=== PATIENT | female | born 1935 | race Caucasian/White ===

== ENCOUNTER 2019-01-03 03:31 | Emergency (ER) | payer MEDICARE ==
[~2019-01-03] VITALS: Ht 157.5 cm; Wt 54.4 kg
--- OUTSIDE RECORDS SUMMARY | 2019-01-03 03:34 | XMS REPORT ---
[facility] Address Unknown Phone Unavailable Care Team Providers Care Teacher [employer] Name Role Phone Unavailable Unavailable Payers Payer Name Policy Type Policy Number Effective Date Expiration Date Problems This patient has no known problems. Allergies, Adverse Reactions, Alerts Allergy Name Allergy Type Status Severity Reaction(s) Onset Date Inactive Date Treating Clinician Comments SHAUN DIAS Active U 2003-02-01 00:00:00 Medications This patient has no known medications. Results Test Description Test Time Test Comments Text Results Atomic Results Result Comments PROTHROMBIN TIME 2019-01-01 14:48:00 PROTHROMBIN TIME PATIENT (test code=PTP) 23.7 seconds 9.0-14.0 INTERNATIONAL NORMAL RATIO (test code=INR) 2.0 0.8-1.2 The therapeutic range for oral anticoagulant therapy formost indications is an international normalized ratio (INR)of between 2.0 and 3.0. The recommended therapeutic INRrange for various clinical situations is listed below: Clinical Situation INR range Pulmonary e mbolism treatment (2.0-3.0)Venous thrombosis treatmentVenous thrombosis prophylaxis (high risk surgery)Prevention of systemic embolism from: Acute myocardial infarction Valvular heart disease Atrial fibrillation Mechanical prosthetic heart valves (2.5-3.5) PROTHROMBIN [id number] 14:58:00* Test Item Value Reference Range Comments PROTHROMBIN TIME PATIENT (test code=PTP) 23.0 seconds 9.0-14.0 INTERNATIONAL NORMAL RATIO (test code=INR) 1.9 0.8-1.2 The therapeutic range for oral anticoagulant therapy formost indications is an international normalized ratio (INR)of between 2.0 and 3.0. The recommended therapeutic INRrange for various clinical situations is listed below: Clinical Situation INR range Pulmonary e mbolism treatment (2.0-3.0)Venous thrombosis treatmentVenous thrombosis prophylaxis (high risk surgery)Prevention of systemic embolism from: Acute myocardial infarction Valvular heart disease Atrial fibrillation Mechanical prosthetic heart valves (2.5-3.5) PROTHROMBIN [id number] 13:26:00* Test Item Value Reference Range Comments PROTHROMBIN TIME PATIENT (test code=PTP) 48.8 seconds 9.0-14.0 INTERNATIONAL NORMAL RATIO (test code=INR) 4.1 0.8-1.2 The therapeutic range for oral anticoagulant therapy formost indications is an international normalized ratio (INR)of between 2.0 and 3.0. The recommended therapeutic INRrange for various clinical situations is listed below: Clinical Situation INR range Pulmonary e mbolism treatment (2.0-3.0)Venous thrombosis treatmentVenous thrombosis prophylaxis (high risk surgery)Prevention of systemic embolism from: Acute myocardial infarction Valvular heart disease Atrial fibrillation Mechanical prosthetic heart valves (2.5-3.5) PROTHROMBIN [id number] 11:47:00* Test Item Value Reference Range Comments PROTHROMBIN TIME PATIENT (test code=PTP) 18.0 seconds 9.0-14.0 INTERNATIONAL NORMAL RATIO (test code=INR) 1.5 0.8-1.2 The therapeutic range for oral anticoagulant therapy formost indications is an international normalized ratio (INR)of between 2.0 and 3.0. The recommended therapeutic INRrange for various clinical situations is listed below: Clinical Situation INR range Pulmonary e mbolism treatment (2.0-3.0)Venous thrombosis treatmentVenous thrombosis prophylaxis (high risk surgery)Prevention of systemic embolism from: Acute myocardial infarction Valvular heart disease Atrial fibrillation Mechanical prosthetic heart valves (2.5-3.5) PROTHROMBIN [id number] 11:24:00* Test Item Value Reference Range Comments PROTHROMBIN TIME PATIENT (test code=PTP) 36.9 seconds 9.0-14.0 INTERNATIONAL NORMAL RATIO (test code=INR) 3.2 0.8-1.2 The therapeutic range for oral anticoagulant therapy formost indications is an international normalized ratio (INR)of between 2.0 and 3.0. The recommended therapeutic INRrange for various clinical situations is listed below: Clinical Situation INR range Pulmonary e mbolism treatment (2.0-3.0)Venous thrombosis treatmentVenous thrombosis prophylaxis (high risk surgery)Prevention of systemic embolism from: Acute myocardial infarction Valvular heart disease Atrial fibrillation Mechanical prosthetic heart valves (2.5-3.5) PROTHROMBIN [id number] 14:10:00* Test Item Value Reference Range Comments PROTHROMBIN TIME PATIENT (test code=PTP) 41.1 seconds 9.0-14.0 INTERNATIONAL NORMAL RATIO (test code=INR) 3.5 0.8-1.2 The therapeutic range for oral anticoagulant therapy formost indications is an international normalized ratio (INR)of between 2.0 and 3.0. The recommended therapeutic INRrange for various clinical situations is listed below: Clinical Situation INR range Pulmonary e mbolism treatment (2.0-3.0)Venous thrombosis treatmentVenous thrombosis prophylaxis (high risk surgery)Prevention of systemic embolism from: Acute myocardial infarction Valvular heart disease Atrial fibrillation Mechanical prosthetic heart valves (2.5-3.5) PROTHROMBIN [id number] 13:11:00* Test Item Value Reference Range Comments PROTHROMBIN TIME PATIENT (test code=PTP) 30.1 seconds 9.0-14.0 INTERNATIONAL NORMAL RATIO (test code=INR) 2.6 0.8-1.2 The therapeutic range for oral anticoagulant therapy formost indications is an international normalized ratio (INR)of between 2.0 and 3.0. The recommended therapeutic INRrange for various clinical situations is listed below: Clinical Situation INR range Pulmonary e mbolism treatment (2.0-3.0)Venous thrombosis treatmentVenous thrombosis prophylaxis (high risk surgery)Prevention of systemic embolism from: Acute myocardial infarction Valvular heart disease Atrial fibrillation Mechanical prosthetic heart valves (2.5-3.5) COMPREHENSIVE METABOLIC [id number] 12:19:00* Test Item Value Reference Range Comments SODIUM (test code=NA) 142 mmol/L 136-145 POTASSIUM (test code=K) 4.1 mmol/L 3.5-5.1 CHLORIDE (test code=CL) 104.0 mmol/L 98-107 CARBON DIOXIDE (test code=CO2) 30.0 mmol/L 21-32 ANION GAP (test code=GAP) 12.1 10-20 GLUCOSE (test code=GLU) 99 mg/dL 74-106 BLOOD UREA NITROGEN (test code=BUN) 13 mg/dL 7-18 GLOMERULAR FILTRATION RATE (test code=GFR) > 60 mL/min >=60 Estimated GFR by using Modified MDRD formula.Chronic kidney disease is defined as either kidney damageor GFR <60 mL/min/1.73 m2 for >3 months. CREATININE (test code=CREAT) 0.70 mg/dL 0.55-1.02 Note change in reference range due to change in reagent. BUN/CREATININE RATIO (test code=BUN/CREA) 17.4 10-20 TOTAL PROTEIN (test code=PROT) 7.6 gram/dL 6.4-8.2 ALBUMIN (test code=ALB) 3.5 g/dL 3.4-5.0 GLOBULIN (test code=GLOB) 4.1 gram/dL 2.7-4.2 ALBUMIN/GLOBULIN RATIO (test code=A/G) 0.9 0.75-1.50 CALCIUM (test code=CA) 9.0 mg/dL 8.5-10.1 BILIRUBIN TOTAL (test code=BILT) 0.40 mg/dL 0.0-1.0 SGOT/AST (test code=AST) 21 IUnit/L 15-37 SGPT/ALT (test code=ALT) 18 IUnit/L 12-78 ALKALINE PHOSPHATASE TOTAL (test code=ALKP) 81 IUnit/L 45-117 Note change in reference range due to change in reagent. LIPID PROFILE (CORONARY RISK)2018-10-06 12:19:00* Test Item Value Reference Range Comments TRIGLYCERIDES (test code=TRIG) 93 mg/dL 20-150 CHOLESTEROL (test code=CHOL) 236 mg/dL 0-200 CHOLESTEROL/HDL RATIO (test code=CHOLHDL) 4.0 RATIO 0-4.9 RISK ASSOCIATED WITH CHOL/HDL RATIOS: Risk Male Female1/2 AVERAGE 3.43 3.27AVERAGE 4.97 4.442X AVERAGE 9.55 7.053X AVERAGE 23.39 11.04 REFERENCE VALUE IS RELATED TO RISK LEVELS ASRECOMMENDED BY THE [facility]. HEART, LUNG, AND BLOOD INST. HDL CHOLESTEROL (test code=HDL) 58 mg/dL 40-60 LIPOPROTEIN LDL (test code=LDL) 162 mg/dL 100-129 RN PERSONNEL, CONTACT PHYSICIAN IMMEDIATELY IF THIS IS A STROKE, AMI OR CAROTID STENOSIS PATIENT WHEN THE LDL >100 (1ST OCCURENCE, THIS ADMISSION) Reference Interval: mg/dL mmol/L Optimal <100 <2.6Near/above optimal 100-129 2.6- 3.3Borderline High 130-159 3.4-4.1High 160-189 4.1-4.9Very High >=190 >=4.9=========This LDL result is a direct measurement.========= THYROID STIMULATING [id number] 12:19:00* Test Item Value Reference Range Comments THYROID STIMULATING HORMONE (test code=TSH) 0.411 uIU/mL 0.36-3.74 TSH REFERENCE RANGES: EUTHYROID: 0.35 - 4.3 mIU/mL HYPO : > 5.5 mIU/mL HYPER : < 0.35 mIU/mL COMPREHENSIVE METABOLIC [id number] 12:01:00* Test Item Value Reference Range Comments SODIUM (test code=NA) 142 mmol/L 136-145 POTASSIUM (test code=K) 4.1 mmol/L 3.5-5.1 CHLORIDE (test code=CL) 104.0 mmol/L 98-107 CARBON DIOXIDE (test code=CO2) mmol/L 21-32 ANION GAP (test code=GAP) 10-20 GLUCOSE (test code=GLU) mg/dL 74-106 BLOOD UREA NITROGEN (test code=BUN) mg/dL 7-18 GLOMERULAR FILTRATION RATE (test code=GFR) mL/min >=60 CREATININE (test code=CREAT) mg/dL 0.55-1.02 BUN/CREATININE RATIO (test code=BUN/CREA) 10-20 TOTAL PROTEIN (test code=PROT) gram/dL 6.4-8.2 ALBUMIN (test code=ALB) g/dL 3.4-5.0 GLOBULIN (test code=GLOB) gram/dL 2.7-4.2 ALBUMIN/GLOBULIN RATIO (test code=A/G) 0.75-1.50 CALCIUM (test code=CA) mg/dL 8.5-10.1 BILIRUBIN TOTAL (test code=BILT) mg/dL 0.0-1.0 SGOT/AST (test code=AST) IUnit/L 15-37 SGPT/ALT (test code=ALT) IUnit/L 12-78 ALKALINE PHOSPHATASE TOTAL (test code=ALKP) IUnit/L 45-117 LIPID PROFILE (CORONARY RISK)2018-10-06 12:01:00* Test Item Value Reference Range Comments TRIGLYCERIDES (test code=TRIG) mg/dL 20-150 CHOLESTEROL (test code=CHOL) mg/dL 0-200 CHOLESTEROL/HDL RATIO (test code=CHOLHDL) RATIO 0-4.9 HDL CHOLESTEROL (test code=HDL) mg/dL 40-60 LIPOPROTEIN LDL (test code=LDL) mg/dL 100-129 THYROID STIMULATING [id number] 12:01:00* Test Item Value Reference Range Comments THYROID STIMULATING HORMONE (test code=TSH) uIU/mL 0.36-3.74 CBC W/AUTO [id number] 11:35:00* Test Item Value Reference Range Comments WHITE BLOOD CELL (test code=WBC) 4.6 K/mm3 4.5-12.5 RED BLOOD CELL (test code=RBC) 4.97 mill/mm3 3.7-5.2 HEMOGLOBIN (test code=HGB) 14.9 gram/dL 11.5-15.5 HEMATOCRIT (test code=HCT) 45.9 % 36.0-46.0 MEAN CELL VOLUME (test code=MCV) 92.4 fL 80-98 MEAN CELL HGB (test code=MCH) 30.0 picogram 27.0-33.0 MEAN CELL HGB CONCETRATION (test code=MCHC) 32.5 gram/dL 33.0-36.0 RED CELL DISTRIBUTION WIDTH (test code=RDW) 14.0 % 11.6-16.2 RED CELL DISTRIBUTION WIDTH SD (test code=RDW-SD) 47.6 fL 37.0-51.0 PLATELET COUNT (test code=PLT) 191 K/mm3 150-450 MEAN PLATELET VOLUME (test code=MPV) 9.6 fL 6.7-11.0 NEUTROPHIL % (test code=NT%) 68.3 % 39.0-69.0 IMMATURE GRANULOCYTE % (test code=IG%) 0.7 % 0.0-5.0 LYMPHOCYTE % (test code=LY%) 17.6 % 25.0-55.0 MONOCYTE % (test code=MO%) 10.2 % 0.0-10.0 EOSINOPHIL % (test code=EO%) 2.8 % 0.0-5.0 BASOPHIL % (test code=BA%) 0.4 % 0.0-1.0 NUCLEATED RBC % (test code=NRBC%) 0.0 % 0-0 NEUTROPHIL # (test code=NT#) 3.15 K/mm3 1.8-7.7 IMMATURE GRANULOCYTE # (test code=IG#) 0.03 x10 3/uL 0-0.03 LYMPHOCYTE # (test code=LY#) 0.81 K/mm3 1.0-5.0 MONOCYTE # (test code=MO#) 0.47 K/mm3 0-0.8 EOSINOPHIL # (test code=EO#) 0.13 K/mm3 0.0-0.5 BASOPHIL # (test code=BA#) 0.02 K/mm3 0.0-0.2 NUCLEATED RBC # (test code=NRBC#) 0.00 K/mm3 0.0-0.1 MANUAL DIFF REQUIRED (test code=MDIFF) NO CBC W/AUTO [id number] 11:30:00* Test Item Value Reference Range Comments WHITE BLOOD CELL (test code=WBC) K/mm3 4.5-12.5 RED BLOOD CELL (test code=RBC) mill/mm3 3.7-5.2 HEMOGLOBIN (test code=HGB) 14.9 gram/dL 11.5-15.5 HEMATOCRIT (test code=HCT) 45.9 % 36.0-46.0 MEAN CELL VOLUME (test code=MCV) fL 80-98 MEAN CELL HGB (test code=MCH) picogram 27.0-33.0 MEAN CELL HGB CONCETRATION (test code=MCHC) gram/dL 33.0-36.0 RED CELL DISTRIBUTION WIDTH (test code=RDW) % 11.6-16.2 RED CELL DISTRIBUTION WIDTH SD (test code=RDW-SD) fL 37.0-51.0 PLATELET COUNT (test code=PLT) K/mm3 150-450 MEAN PLATELET VOLUME (test code=MPV) fL 6.7-11.0 NEUTROPHIL % (test code=NT%) % 39.0-69.0 IMMATURE GRANULOCYTE % (test code=IG%) % 0.0-5.0 LYMPHOCYTE % (test code=LY%) % 25.0-55.0 MONOCYTE % (test code=MO%) % 0.0-10.0 EOSINOPHIL % (test code=EO%) % 0.0-5.0 BASOPHIL % (test code=BA%) % 0.0-1.0 NEUTROPHIL # (test code=NT#) K/mm3 1.8-7.7 LYMPHOCYTE # (test code=LY#) K/mm3 1.0-5.0 MONOCYTE # (test code=MO#) K/mm3 0-0.8 EOSINOPHIL # (test code=EO#) K/mm3 0.0-0.5 BASOPHIL # (test code=BA#) K/mm3 0.0-0.2 PROTHROMBIN [id number] 13:41:00* Test Item Value Reference Range Comments PROTHROMBIN TIME PATIENT (test code=PTP) 27.8 seconds 9.0-14.0 INTERNATIONAL NORMAL RATIO (test code=INR) 2.4 0.8-1.2 The therapeutic range for oral anticoagulant therapy formost indications is an international normalized ratio (INR)of between 2.0 and 3.0. The recommended therapeutic INRrange for various clinical situations is listed below: Clinical Situation INR range Pulmonary e mbolism treatment (2.0-3.0)Venous thrombosis treatmentVenous thrombosis prophylaxis (high risk surgery)Prevention of systemic embolism from: Acute myocardial infarction Valvular heart disease Atrial fibrillation Mechanical prosthetic heart valves (2.5-3.5) PROTHROMBIN [id number] 13:51:00* Test Item Value Reference Range Comments PROTHROMBIN TIME PATIENT (test code=PTP) 28.6 seconds 9.0-14.0 INTERNATIONAL NORMAL RATIO (test code=INR) 2.4 0.8-1.2 The therapeutic range for oral anticoagulant therapy formost indications is an international normalized ratio (INR)of between 2.0 and 3.0. The recommended therapeutic INRrange for various clinical situations is listed below: Clinical Situation INR range Pulmonary e mbolism treatment (2.0-3.0)Venous thrombosis treatmentVenous thrombosis prophylaxis (high risk surgery)Prevention of systemic embolism from: Acute myocardial infarction Valvular heart disease Atrial fibrillation Mechanical prosthetic heart valves (2.5-3.5) PROTHROMBIN [id number] 12:43:00* Test Item Value Reference Range Comments PROTHROMBIN TIME PATIENT (test code=PTP) 26.7 seconds 9.0-14.0 INTERNATIONAL NORMAL RATIO (test code=INR) 2.3 0.8-1.2 The therapeutic range for oral anticoagulant therapy formost indications is an international normalized ratio (INR)of between 2.0 and 3.0. The recommended therapeutic INRrange for various clinical situations is listed below: Clinical Situation INR range Pulmonary e mbolism treatment (2.0-3.0)Venous thrombosis treatmentVenous thrombosis prophylaxis (high risk surgery)Prevention of systemic embolism from: Acute myocardial infarction Valvular heart disease Atrial fibrillation Mechanical prosthetic heart valves (2.5-3.5) PROTHROMBIN [id number] 11:37:00* Test Item Value Reference Range Comments PROTHROMBIN TIME PATIENT (test code=PTP) 23.9 seconds 9.0-14.0 INTERNATIONAL NORMAL RATIO (test code=INR) 2.0 0.8-1.2 The therapeutic range for oral anticoagulant therapy formost indications is an international normalized ratio (INR)of between 2.0 and 3.0. The recommended therapeutic INRrange for various clinical situations is listed below: Clinical Situation INR range Pulmonary e mbolism treatment (2.0-3.0)Venous thrombosis treatmentVenous thrombosis prophylaxis (high risk surgery)Prevention of systemic embolism from: Acute myocardial infarction Valvular heart disease Atrial fibrillation Mechanical prosthetic heart valves (2.5-3.5) PROTHROMBIN [id number] 12:49:00* Test Item Value Reference Range Comments PROTHROMBIN TIME PATIENT (test code=PTP) 17.6 seconds 9.0-14.0 INTERNATIONAL NORMAL RATIO (test code=INR) 1.5 0.8-1.2 The therapeutic range for oral anticoagulant therapy formost indications is an international normalized ratio (INR)of between 2.0 and 3.0. The recommended therapeutic INRrange for various clinical situations is listed below: Clinical Situation INR range Pulmonary e mbolism treatment (2.0-3.0)Venous thrombosis treatmentVenous thrombosis prophylaxis (high risk surgery)Prevention of systemic embolism from: Acute myocardial infarction Valvular heart disease Atrial fibrillation Mechanical prosthetic heart valves (2.5-3.5) PROTHROMBIN [id number] 12:56:00* Test Item Value Reference Range Comments PROTHROMBIN TIME PATIENT (test code=PTP) 23.9 seconds 9.0-14.0 INTERNATIONAL NORMAL RATIO (test code=INR) 2.0 0.8-1.2 The therapeutic range for oral anticoagulant therapy formost indications is an international normalized ratio (INR)of between 2.0 and 3.0. The recommended therapeutic INRrange for various clinical situations is listed below: Clinical Situation INR range Pulmonary e mbolism treatment (2.0-3.0)Venous thrombosis treatmentVenous thrombosis prophylaxis (high risk surgery)Prevention of systemic embolism from: Acute myocardial infarction Valvular heart disease Atrial fibrillation Mechanical prosthetic heart valves (2.5-3.5) - XR CHEST 2 [id number] 11:31:00 FAX: Mannie Crystal MD [phone] [place]: O St: REG FAX: Y Mark Trejo MD [phone] Name: TITA SHARIF [facility] : 1935 Age/S: 83/F [address] [facility] Unit #: [id number] Loc: [place] [address] Phys: Mark Trejo MD Acct: [id number] Dis Date: Status: REG RCR PHONE #: [phone] Exam Date: 04/26/2018 1121 FAX #: [phone] Reason: R07.9 EXAMS: CPT CODE: [id number] XR CHEST 2 V 81378 HISTORY: R07.9. COMPARISON: January 24, 2015. Hyperinflation and COPD. Mild scarring without acute infiltrates, effusion or congestion. Cardiac and the mediastinal silhouette are normal. IMPRESSION: No acute infiltrates, effusion or congestion. COPD and hyperinflation. at 1131 Reported and signed by: Zi Resendiz M.D. CC: Mannie Crystal MD; Mark Trejo MD Technologist: QUINCY Sauer) Trnscrd Date/Time/By: 04/26/2018 (1131) : By: [email or web address] Orig Print D/T: S: 04/26/2018 (1593) PAGE 1 Signed Report PROTHROMBIN [id number] 12:45:00 * Test Item Value Reference Range Comments PROTHROMBIN TIME PATIENT (test code=PTP) 25.7 seconds 9.0-14.0 INTERNATIONAL NORMAL RATIO (test code=INR) 2.1 0.8-1.2 The therapeutic range for oral anticoagulant therapy formost indications is an international normalized ratio (INR)of between 2.0 and 3.0. The recommended therapeutic INRrange for various clinical situations is listed below: Clinical Situation INR range Pulmonary e mbolism treatment (2.0-3.0)Venous thrombosis treatmentVenous thrombosis prophylaxis (high risk surgery)Prevention of systemic embolism from: Acute myocardial infarction Valvular heart disease Atrial fibrillation Mechanical prosthetic heart valves (2.5-3.5)
[2019-01-03] MEDS ORDERED: DIAZEPAM 5 MG TAB PO SCH (03:45)
[2019-01-03] MEDS ORDERED: HYDROCODONE/APAP 5MG-325MG TAB PO ONE (05:00)
[2019-01-03] MEDS ORDERED: HYDROCODONE/APAP 5MG-325MG TAB ONE (05:00)
[2019-01-03] MEDS ORDERED: ROBAXIN-750750 MG PO (06:03)
[2019-01-03] MEDS ORDERED: ULTRAM50 MG PO (06:03)
[2019-01-03 06:08] LABS: BILIRUBIN,URINE NEGATIVE (NEGATIVE); CLARITY,URINE CLEAR (CLEAR); COLOR,URINE YELLOW (YELLOW); KETONES,URINE NEGATIVE (NEGATIVE); LEUKOCYTE ESTERASE ,URINE NEGATIVE (NEGATIVE); NITRITE,URINE NEGATIVE (NEGATIVE); PROTEIN,URINE DIPSTICK NEGATIVE (NEGATIVE); URINE UROBILINOGEN 0.2 mg/dL (0.2 - 1)
[2019-01-03 06:12] LABS: BACTERIA,URINE RARE /HPF; EPITHELIAL CELLS,URINE FEW /LPF
--- NOTE | 2019-01-03 07:31 | Diagnostic Imaging Report ---
Cervical spine complete Indication: Neck pain, no trauma Technique: AP, lateral, odontoid and bilateral oblique views of cervical spine obtained. Comparison: None Findings: Cervical vertebral bodies can be visualized to C6. Anterolisthesis of C4 on C5 measures 2 mm. No prevertebral soft tissue swelling. Disc space narrowing is identified at C5/6. Osteophyte formation is seen at C5-6. The facets and spinous processes are normally aligned. There is facet arthropathy at C2-3, C3-4, C4-5, particularly on the left. Alignment is maintained on the AP view. The lateral masses of C1 are symmetric. The dens is intact. Right foraminal narrowing at C4-5 and C5-6, mild. Left foraminal narrowing at C4-5 and C5-6, mild to moderate. The skull base is normal. There is leftward deviation of the trachea possibly from an enlarged thyroid gland. IMPRESSION: 1. Degenerative changes of the spine as described above. Grade 1 anterolisthesis of C4 on C5. If there is a focal neurologic deficit, consider further evaluation of the spine and cord with MRI. 2. Leftward tracheal deviation possibly from an enlarged thyroid gland. This can be confirmed with thyroid ultrasound on an outpatient basis. Signed by: Dr. Clair Borrero MD on 01/03/2019 7:27 AM
[2019-01-03 07:56] VITALS: BP 118/65
== END 2019-01-03 07:50 | disposition home or self-care (01) ==
LOC: ER 03:31
DX: S16.1XXA Strain of muscle, fascia and tendon at neck level, initial encounter (principal)
CPT/HCPCS: 72050; 81001; 99283